=== PATIENT | female | born 1960 | race Hispanic/Latino ===

== ENCOUNTER 2019-01-30 00:41 | Emergency (ER) | payer OTHER, SELFPAY ==
[~2019-01-30] VITALS: Ht 162.6 cm; Wt 63.5 kg
[2019-01-30] MEDS ORDERED: ADACEL VIAL IM ONE (00:53)
[2019-01-30] MEDS ORDERED: TRIPLE ANTIBIOTIC OINTMENT TP ONE (00:53)
[2019-01-30 00:54] VITALS: BP 170/112
[2019-01-30 00:57] VITALS: BP 170/112
--- NOTE | 2019-01-30 01:01 | NUR ---
WOUND CARE WOUND CLEANED,NEOSPORIN APPLIED,AND BANDAGE PLACED
--- NOTE | 2019-01-30 04:08 | ER.PDOC ---
General Chief Complaint: Extremities Stated Complaint: LACERATION Time seen by MD: 00:59 Source: patient Exam Limitations: no limitations History of Present Illness Initial Comments Laceration to left wrist Occurred: just prior to arrival Where: other ([facility]) Severity: mild Past Medical History Medical History: other (Hepatitis) Social History Alcohol Use: none Drug Use: none Review of Systems Constitutional: no symptoms reported Respiratory: no symptoms reported Cardiovascular: no symptoms reported Gastrointestinal: no symptoms reported Skin: see HPI All Other Systems: Reviewed and Negative Physical Exam General Appearance: Alert, No Apparent Distress Hand: nml inspection, non-tender Wrist: see diagram Forearm/Elbow: nml inspection, non-tender, nml ROM Arm/Shoulder: nml inspection, non-tender, nml ROM 1 - small Lac Neuro/Vasc/Tendon: sensation nml, motor nml, no vascular compromise, tendon function nml Skin: warm/dry Head/ENT: nml inspection, pharynx nml Neck/Back: nml inspection, non-tender Respiratory: chest non-tender, breath sounds nml CVS: heart sounds normal Abdomen: non-tender, no organomegaly Results/Orders Results/Orders Orders - ROWAN MARK MD Neomycin/Bacitracin/Polymyxinb (Triple A (01/30/19 00:53) Diph,Pertuss(Acell),Tet Vac/Pf (Adacel V (01/30/19 00:53) Vital Signs Date Time Temp Pulse Resp B/P (MAP) Pulse Ox O2 Delivery O2 Flow Rate FiO2 01/30/19 00:54 98.1 123 20 170/112 (131) 99 Room Air 01/30/19 00:45 98.1 123 20 99 Room Air Progress Progress Wound cleaned and dressed by me. Patient told me she had a Tetanus shot this yea rPaige Departure Time of Disposition: 01:01 Disposition: 01 HOME, SELF-CARE Impression: Primary Impression: Laceration of wrist, left Condition: Stable Referrals: PCP,UNKNOWN (PCP) PRIMARY CARE PROVIDER Additional Instructions: Apply Neosporin daily Duration or Time Spent with Pa: 20 mins Problem Qualifiers Primary Impression: Laceration of wrist, left Encounter type: initial encounter Qualified Codes: S61.512A - Laceration without foreign body of left wrist, initial encounter ROWAN MARK MD Jan 30, 2019 01:02
== END 2019-01-30 01:08 | disposition home or self-care (01) ==
LOC: ER 00:41
DX: S61.512A Laceration without foreign body of left wrist, initial encounter (principal); X58.XXXA Exposure to other specified factors, initial encounter; Y93.89 Activity, other specified; Y92.148 Other place in prison as the place of occurrence of the external cause; Y99.8 Other external cause status
CPT/HCPCS: 90471; 90715; 99283